=== PATIENT | male | born 1975 | race African-American/Black ===

== ENCOUNTER 2025-02-10 13:02 | Inpatient (IN) ==
[2025-02-10 14:04] LABS: Basophils # (auto) 0.02 K/uL (0.00-0.20); Basophils % (auto) 0.4 %; Eosinophils # (auto) 0.06 K/uL (0.00-0.50); Eosinophils % (auto) 1.2 %; Hematocrit (blood only) 37.8 % (42.0-52.0); Hemoglobin 12.7 g/dl (14.0-18.0); Immature Granulocytes # (auto) 0.01 K/uL (0.01-0.20); Immature Granulocytes % (auto) 0.2 %; Lymphocytes # (auto) 1.04 K/uL (1.20-3.40); Lymphocytes % (auto) 20.5 %; Mean Corpuscular Hemoglobin 31.9 pg (25.0-34.0); Mean Corpuscular Hgb Conc 33.6 g/dL (32.0-36.0); Mean Platelet Volume 9.3 fL (9.4-12.4); Monocytes % (auto) 9.8 %; Neutrophils # (auto) 3.45 K/uL (1.40-6.50); Neutrophils % (auto) 67.9 %; Platelet Count 252 K/uL (130-400); RDW Coefficient of Variation 13.6 % (11.5-14.5); RDW Standard Deviation 47.5 fL (36.4-46.3); Red Blood Count 3.98 M/uL (4.70-6.10); White Blood Count 5.08 K/ul (4.8-10.8)
[2025-02-10 14:12] LABS: Calcium 9.1 mg/dl (8.6-10.3); Potassium 3.6 mmol/L (3.5-5.1)
[2025-02-10 14:18] LABS: Creatinine Clr Calc Pharmacy 99.8 ml/min
[2025-02-10 14:27] LABS: BUN Creatinine Ratio 18.4 (10-20)
[2025-02-10 14:28] LABS: INR 0.9 (0.9-1.1); Partial Thromboplastin Ratio 0.9; Partial Thromboplastin Time 25 Seconds (21-31); Prothrombin Time 10.2 Seconds (9.0-12.0)
--- NOTE | 2025-02-10 15:04 | CT Scan Report ---
CT head without contrast History: Comparison: None Technique: Using multidetector thin collimation helical acquisition technique, axial, coronal and sagittal CT images from the skull base to the vertex were obtained without intravenous contrast. Dose reduction techniques were achieved by using automatic exposure control and/or adjustment of mA and/or kV according to patient size and/or use of iterative reconstruction technique. Findings: There is no acute territorial infarct, hemorrhage or abnormal mass effect. There is no intracranial mass identified. Mild atrophy and small vessel ischemic white matter disease. No shift of midline structures. No depressed skull fracture. No extra-axial fluid collection. Posterior fossa structures are grossly unremarkable Impression No acute intracranial process. Chronic changes of atrophy and small vessel disease. Electronically signed by Carlos Araujo 02-10-2025 3:04 PM
--- NOTE | 2025-02-10 15:06 | CT Scan Report ---
CT cervical spine without IV contrast History: Comparison: None Technique: Using multidetector thin collimation helical acquisition technique, axial, coronal and sagittal CT images through the cervical spine were obtained without intravenous contrast. Dose reduction techniques were achieved by using automatic exposure control and/or adjustment of mA and/or kV according to patient size and/or use of iterative reconstruction technique. Findings: Ybvgrhx-S0-D7 articulation appeared normal. Odontoid process is intact. No acute compression deformities. Posterior elements are intact. No acute process. Prevertebral soft tissues are normal. Airways are patent. Degenerative changes:Afkrepm-I1-X9 articulation appeared normal. Odontoid process is intact. No acute compression deformities. Posterior elements are intact. No acute process. Prevertebral soft tissues are normal. Airways are patent. Degenerative changes: Severe degenerative changes from C5-T1. Impression No acute process. Degenerative changes mid and lower cervical spine Electronically signed by Carlos Araujo 02-10-2025 3:06 PM
--- NOTE | 2025-02-10 15:31 | XRay Report ---
Chest radiograph, one view History: Syncope Comparison: 07/23/2022 Findings: Single AP view of the chest performed. No focal consolidation or pleural effusion. No pneumothorax. The cardiomediastinal silhouette is within normal limits. Normal pulmonary vascularity. No evidence for lymphadenopathy. No visualized bony or soft tissue abnormality. Impression: Normal chest radiograph Electronically signed by Carlos Araujo 02-10-2025 3:31 PM
[2025-02-10] MEDS: levETIRAcetam 500 MG/5 ML VIAL IV SCH (15:34)
[2025-02-10] MEDS ORDERED: ACETAMINOPHEN 325 MG TAB PO PRN (16:04)
[2025-02-10] MEDS ORDERED: MELATONIN 3 MG TAB PO PRN (16:04)
[2025-02-10] MEDS ORDERED: LORazepam 2 MG/1 ML VIAL IV PRN (16:06)
--- NOTE | 2025-02-10 16:06 | History & Physical Report ---
Date of Service February 10, 2025 Assessment & Plan (1) Seizure: (2) AMS (altered mental status): Plan #AMS likely 2/2 post-ictal in the setting of seizure d/o history #Bradypnea likely 2/2 above vs. drug abuse #History of AUD #Mild rhabdomyolysis #Normocytic anemia -ED talked to neuro who recommends keppra load -neuro consult -IV ativan for seizures -fall, aspiration precautions -NPO, bedside swallow, ST evaluation -hydration -PT/OT -UDS -B12, folate -MRI brain -UA, Bcx IVF, NPO for now SCDs History of Present Illness Primary Care Provider: TAYLER PCP 49M pmh seizure d/o, AUD who presents to the ED altered. Patient was reported to be somewhat confused on evaluation by the ED and also on my evaluation. States that he syncopized for unknown reasons. On my evaluation p atient admits that he has a history of seizure d/o, though he is unable to provide further details. Unclear precipitants or history of connection to neurology or medications for seizure modifications. No other complaints on my evaluation including focal weakness or numbness, and he was AAOx4 when awake, but quite lethargus. Allergies Allergy/AdvReac Type Severity Reaction Status Date / Time No Known Allergies Allergy Unverified 07/23/22 00:45 Home Medications Medication Instructions Recorded Confirmed Type No Known Home Medications 02/10/25 02/10/25 History Past Med/Surg History Problem List (Updated 02/10/25 @ 16:01 by Rick Fuentes MD) AMS (altered mental status) Seizure Encounter for removal of sutures (Acute) COVID-19 (Acute) Hypertension Alcohol use with intoxication HTN (hypertension) (Chronic) Syncope, vasovagal (Acute) Medical History Syncope Surgical History No pertinent past surgical history Family History Other Family history non-contributory Social History Smoking Status: Unknown if ever smoked Tobacco Type: E-cigarettes / Vaping Hx Alcohol Use: Yes Hx Substance Use: No Preferred Language: French Visual Impairment: No Limitations Hearing Ability: Normal marital status: Single current occupational status: employed Feels Safe at Home: Yes Review of Systems Constitutional: + daytime sleepiness; no fever and no ch ills Cardiovascular: no chest pain Neurologic: + syncope; no localized weakness, no los s of sensation and no numbness Physical Exam Constitutional: + diaphoretic and + lethargic Neurologic: patient does not fully cooperate with evaluation Results & Data Results & Data Vital Signs (Past 12 Hours) Vital Signs Temp Pulse Pulse Resp BP BP Pulse Ox 02/10/25 15:10 70 11 L 112/70 94 02/10/25 13:16 72 02/10/25 13:12 36.8 C 65 18 120/64 93 O2 Del Method 02/10/25 15:10 Room Air 02/10/25 13:16 02/10/25 13:12 Room Air Laboratory Results Abnormal lab results 02/10/25 Range/Units 13:20 RBC 3.98 L (4.70-6.10) M/uL Hgb 12.7 L (14.0-18.0) g/dl Hct 37.8 L (42.0-52.0) % RDW Std Deviation 47.5 H (36.4-46.3) fL MPV 9.3 L (9.4-12.4) fL Lymph # (Auto) 1.04 L (1.20-3.40) K/uL Glucose 156 H (70-99(Fasting)) mg/dl Total Creatine Kinase 273 H (30-223) U/L Diagnostic Findings Cervical Spine CT 02/10/25 13:47 CT cervical spine without IV contrast History: Comparison: None Technique: Using multidetector thin collimation helical acquisition technique, axial, coronal and sagittal CT images through the cervical spine were obtained without intravenous contrast. Dose reduction techniques were achieved by using automatic exposure control and/or adjustment of mA and/or kV according to patient size and/or use of iterative reconstruction technique. Findings: Ovphxdt-P7-A5 articulation appeared normal. Odontoid process is intact. No acute compression deformities. Posterior elements are intact. No acute process. Prevertebral soft tissues are normal. Airways are patent. Degenerative changes:Fwlvtqc-J2-C4 articulation appeared normal. Odontoid process is intact. No acute compression deformities. Posterior elements are intact. No acute process. Prevertebral soft tissues are normal. Airways are patent. Degenerative changes: Severe degenerative changes from C5-T1. Impression No acute process. Degenerative changes mid and lower cervical spine Electronically signed by Carlos Araujo 02-10-2025 3:06 PM Chest X-Ray 02/10/25 13:47 Chest radiograph, one view History: Syncope Comparison: 07/23/2022 Findings: Single AP view of the chest performed. No focal consolidation or pleural effusion. No pneumothorax. The cardiomediastinal silhouette is within normal limits. Normal pulmonary vascularity. No evidence for lymphadenopathy. No visualized bony or soft tissue abnormality. Impression: Normal chest radiograph Electronically signed by Carlos Araujo 02-10-2025 3:[address] 02/10/25 13:47 CT head without contrast History: Comparison: None Technique: Using multidetector thin collimation helical acquisition technique, axial, coronal and sagittal CT images from the skull base to the vertex were obtained without intravenous contrast. Dose reduction techniques were achieved by using automatic exposure control and/or adjustment of mA and/or kV according to patient size and/or use of iterative reconstruction technique. Findings: There is no acute territorial infarct, hemorrhage or abnormal mass effect. There is no intracranial mass identified. Mild atrophy and small vessel ischemic white matter disease. No shift of midline structures. No depressed skull fracture. No extra-axial fluid collection. Posterior fossa structures are grossly unremarkable Impression No acute intracranial process. Chronic changes of atrophy and small vessel disease. Electronically signed by Carlos Araujo 02-10-2025 3:04 PM
[2025-02-10] MEDS: SODIUM CHLORIDE 0.9% 1,000 ML IV SCH ×2 (16:21→17:35)
[2025-02-10] MEDS ORDERED: NALOXONE HCL 0.4 MG/1 ML VIAL/CARP IV PRN (16:44)
--- NOTE | 2025-02-10 16:47 | Emergency Department Note ---
History of Present Illness General Chief complaint: Seizure Stated complaint: POSSIBLE SEIZURE Time Seen by Provider: 02/10/25 13:36 Source: RN notes reviewed History of Present Illness Provider complaint: Seizure 49-year-old male presents emergency department for procedure. EMS reported the patient recently came here on the bus and was lying on the ground and had possible seizure-like activity. According to the nursing staff they reported to him that he had a seizure history. Patient is unable to give much of a history at this time. Home Medications Medication Instructions Recorded Confirmed Type No Known Home Medications 02/10/25 02/10/25 History Allergies Allergy/AdvReac Type Severity Reaction Status Date / Time No Known Allergies Allergy Unverified 07/23/22 00:45 Past Med/Surg History Problem List (Updated 02/10/25 @ 16:56 by Po Torre MD) Syncope (Acute) Seizure-like activity (Acute) AMS (altered mental status) Seizure Encounter for removal of sutures (Acute) COVID-19 (Acute) Hypertension Alcohol use with intoxication HTN (hypertension) (Chronic) Syncope, vasovagal (Acute) Medical History Syncope Surgical History No pertinent past surgical history Family History Other Family history non-contributory Social History Smoking Status: Unknown if ever smoked Tobacco Type: E-cigarettes / Vaping Hx Alcohol Use: Yes Hx Substance Use: No Preferred Language: Azeri Visual Impairment: No Limitations Hearing Ability: Normal marital status: Single current occupational status: employed Feels Safe at Home: Yes Physical Exam Vital Signs Vital Signs - 24 hr 02/10/25 13:12 02/10/25 13:16 02/10/25 15:10 Temperature 36.8 C Temperature Source Oral Pulse Rate 65 72 Pulse Rate [Apical] 70 Pulse Rhythm [Apical] Regular Pulse Strength [Apical] Normal Respiratory Rate 18 11 L Respiratory Effort / Characteristics Non-Labored Respiratory Depth Normal Respiratory Pattern Regular Blood Pressure 120/64 Blood Pressure [Right Arm] 112/70 Blood Pressure Mean 82 Blood Pressure Mean [Right Arm] 84 Blood Pressure Position [Right Arm] Lying Pulse Oximetry 93 94 Oxygen Delivery Method Room Air Room Air Sepsis Recent Fever Within 48 Hours No Sepsis New/Unexplained Change in Mental Status No Sepsis Action Taken by Nursing No Action Required Physical Exam GENERAL: Patient appears postictal. HENT: Exam performed. - Head: Normocephalic and atraumatic. EYES: Conjunctivae and EOM are normal. Pupils are equal, round, and reactive to light. Right eye exhibits no discharge. Left eye exhibits no discharge. No scleral icterus. NECK: Patient in C-collar. CV: Normal rate, regular rhythm, normal heart sounds and intact distal pulses. There is no peripheral edema. Palpable radial pulses bue. PULM/CHEST: Effort normal and breath sounds normal. No respiratory distress. No stridor. He has no wheezes. He has no rales. ABD: The abdomen is soft. There is no tenderness. There is no rebound, no guarding NEURO: Patient appears postictal. Sensation and motor grossly intact. Course Course 1336: The patient was evaluated in room . A complete history and physical exam was performed Cardiac monitoring: An order was placed for continuous cardiac monitoring. The monitor shows a rate of 70 with sinus rhythm interpreted by me External medical records reviewed. Patient has multiple visits to the emergency department for syncope as well as alcohol intoxication. 1522: Vital signs stable. Patient appears more awake and is able to answer more questions. Patient states he has no history of seizure disorder. Labs and imaging are unremarkable. Discussed case with on-call [facility] neurology Dr. Kelly, he recommends starting the patient on Keppra 500 mg twice daily. Patient will be admitted to the hospitalist team for syncope versus seizure. Patient is amenable to be admitted to the hospital. Administered Medications Sodium Chloride (Nss) 1,000 mls @ 999 mls/hr IV .Q1H1M [facility] Stop: 02/10/25 17:09 Last Admin: 02/10/25 16:21 Dose: 999 mls/hr Documented By: JONES Levetiracetam (Levetiracetam 500 Mg/5 Ml Vial) 500 mg IV Q12H [facility] Stop: 03/12/25 15:29 Last Admin: 02/10/25 15:34 Dose: 500 mg Documented By: JONES Medical Decision Making Laboratory Data Attestation: I reviewed the patient's lab results. 02/10/25 13:20 02/10/25 13:20 Lab Results 02/10/25 02/10/25 Range/Units 13:20 13:58 WBC 5.08 (4.8-10.8) K/ul RBC 3.98 L (4.70-6.10) M/uL Hgb 12.7 L (14.0-18.0) g/dl Hct 37.8 L (42.0-52.0) % MCV 95.0 (80.0-100.0) fL MCH 31.9 (25.0-34.0) pg MCHC 33.6 (32.0-36.0) g/dL RDW Std Deviation 47.5 H (36.4-46.3) fL RDW Coeff of Sharron 13.6 (11.5-14.5) % Plt Count 252 (130-400) K/uL MPV 9.3 L (9.4-12.4) fL Immature Gran % (Auto) 0.2 % Neut % (Auto) 67.9 % Lymph % (Auto) 20.5 % Lynn % (Auto) 9.8 % Eos % (Auto) 1.2 % Baso % (Auto) 0.4 % Neut # (Auto) 3.45 (1.40-6.50) K/uL Lymph # (Auto) 1.04 L (1.20-3.40) K/uL Lynn # (Auto) 0.50 (0.11-0.59) K/uL Eos # (Auto) 0.06 (0.00-0.50) K/uL Baso # (Auto) 0.02 (0.00-0.20) K/uL Immature Gran # (Auto) 0.01 (0.01-0.20) K/uL PT 10.2 (9.0-12.0) Seconds INR 0.9 (0.9-1.1) APTT 25 (21-31) Seconds PTT Ratio 0.9 Sodium 137 (136-145) mmol/L Potassium 3.6 (3.5-5.1) mmol/L Chloride 104 (98-107) mmol/L Carbon Dioxide 27 (21-32) mmol/L Anion Gap 6 (3-11) BUN 19 (6-23) mg/dl Creatinine 1.03 (0.6-1.4) mg/dl Est Cr Clr Drug Dosing 99.8 ml/min eGFR 89.05 BUN/Creatinine Ratio 18.4 (10-20) Glucose 156 H (70-99(Fasting)) mg/dl Calcium 9.1 (8.6-10.3) mg/dl Magnesium 2.0 (1.7-2.4) mg/dl Total Creatine Kinase 273 H (30-223) U/L Lipase 14 (11-82) U/L Prolactin 36.56 ng/ml Ethyl Alcohol mg/dL < 10.0 (<10.0) mg/dl Imaging Data Attestation: I personally reviewed and interpreted this imaging study as follows: My Impression: Chest x-ray negative. Airway clear. No pneumothorax. No consolidation. No cardiomegaly or cephalization.. No free air under the diaphragm. No fractures of the skeletal structures. Radiologist's Impression: Cervical Spine CT 02/10/25 13:47 CT cervical spine without IV contrast History: Comparison: None Technique: Using multidetector thin collimation helical acquisition technique, axial, coronal and sagittal CT images through the cervical spine were obtained without intravenous contrast. Dose reduction techniques were achieved by using automatic exposure control and/or adjustment of mA and/or kV according to patient size and/or use of iterative reconstruction technique. Findings: Favelni-H1-S1 articulation appeared normal. Odontoid process is intact. No acute compression deformities. Posterior elements are intact. No acute process. Prevertebral soft tissues are normal. Airways are patent. Degenerative changes:Apfqomu-A8-R4 articulation appeared normal. Odontoid process is intact. No acute compression deformities. Posterior elements are intact. No acute process. Prevertebral soft tissues are normal. Airways are patent. Degenerative changes: Severe degenerative changes from C5-T1. Impression No acute process. Degenerative changes mid and lower cervical spine Electronically signed by Carlos Araujo 02-10-2025 3:06 PM Chest X-Ray 02/10/25 13:47 Chest radiograph, one view History: Syncope Comparison: 07/23/2022 Findings: Single AP view of the chest performed. No focal consolidation or pleural effusion. No pneumothorax. The cardiomediastinal silhouette is within normal limits. Normal pulmonary vascularity. No evidence for lymphadenopathy. No visualized bony or soft tissue abnormality. Impression: Normal chest radiograph Electronically signed by Carlos Araujo 02-10-2025 3:[address] 02/10/25 13:47 CT head without contrast History: Comparison: None Technique: Using multidetector thin collimation helical acquisition technique, axial, coronal and sagittal CT images from the skull base to the vertex were obtained without intravenous contrast. Dose reduction techniques were achieved by using automatic exposure control and/or adjustment of mA and/or kV according to patient size and/or use of iterative reconstruction technique. Findings: There is no acute territorial infarct, hemorrhage or abnormal mass effect. There is no intracranial mass identified. Mild atrophy and small vessel ischemic white matter disease. No shift of midline structures. No depressed skull fracture. No extra-axial fluid collection. Posterior fossa structures are grossly unremarkable Impression No acute intracranial process. Chronic changes of atrophy and small vessel disease. Electronically signed by Carlos Araujo 02-10-2025 3:04 PM ECG Data Attestation: I personally reviewed and interpreted this ECG as follows: Rate (beats per minute): 66 ECG Intervals/blocks: + Normal QRS, + Normal MA and + Normal QT-c ECG ST segments: + Normal ST segments MDM Narrative 1336: The patient was evaluated in room . A complete history and physical exam was performed Cardiac monitoring: An order was placed for continuous cardiac monitoring. The monitor shows a rate of 70 with sinus rhythm interpreted by me External medical records reviewed. Patient has multiple visits to the emergency department for syncope as well as alcohol intoxication. 1522: Vital signs stable. Patient appears more awake and is able to answer more questions. Patient states he has no history of seizure disorder. Labs and imaging are unremarkable. Discussed case with on-call [facility] neurology Dr. Kelly, he recommends starting the patient on Keppra 500 mg twice daily. Patient will be admitted to the hospitalist team for syncope versus seizure. Patient is amenable to be admitted to the hospital. Impression & Plan Seizure-like activity, Syncope Discharge Plan Visit Data Chief Complaint: Seizure Stated Complaint: POSSIBLE SEIZURE ED Provider: Po Torre Discharge Problem: Seizure-like activity, Syncope Patient Disposition: Admitted As Inpatient Condition: Fair Forms Stand Alone Forms: [employer] Prescriptions Prescriptions: No Action No Known Home Medications Referrals Referrals: PCP,NO [Primary Care Provider] -
--- NOTE | 2025-02-10 18:01 | XRay Report ---
EXAM: Radiographs of the Orbits Foreign Body INDICATION: MRI clearance TECHNIQUE: Frontal view(s) of the orbits. COMPARISON: No relevant prior studies available. FINDINGS: Bones/joints: No fracture, erosion or dislocation. Sinuses: No abnormality noted. No air-fluid levels. Dental: Metallic dental appliances present. No other foreign body noted. IMPRESSION: Metallic dental appliances present. No other foreign body noted. ACT 112: N/A Electronically signed by Rosa Cho 02-10-2025 6:01 PM
[2025-02-10 23:17] LABS: Folate (Folic Acid),Ser orPlas 15.73 ng/ml (>5.38)
--- NOTE | 2025-02-11 00:23 | Magnetic Resonance Report ---
CLINICAL HISTORY: Episode of confusion, dizziness and altered mental status possible seizure. COMPARISON: CT dated February 10, 2025. TECHNIQUE: Using [facility] 3T scanner MR imaging of the brain was performed acquiring sagittal T1W, coronal T2W and axial T1W/T2W/ FLAIR/ T2* GRE/DWI/ADC without intravenous contrast administration and multiplanar reconstructed for interrogation on PACS. FINDINGS: Brain: Redemonstration of global involutional changes noted. Few discrete T2W and FLAIR hyperintensities are seen in bilateral centrum semiovale and periventricular and subcortical deep white matter. No abnormality seen on diffusion imaging. Findings represent microvascular ischemic changes. No signal voids on hemosensitive gradient echo sequences to prior intracranial hemorrhage or hemosiderin staining. No abnormal signal on diffusion-weighted imaging to suggest acute infarction. No evidence of midline shift or herniation. Ventricles: Well-defined rounded subependymal nodules seen along the roof of bilateral lateral ventricles, one on either side. These measure up to 4 mm. No diffusion restriction identified. 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 Posterior fossa: The posterior fossa appears unremarkable. Cerebellopontine angles, vestibulocochlear nerve complexes and internal auditory canals appear grossly unremarkable. No evidence of Chiari malformation. Vascular system: No gross vascular abnormalities. The major vessels at the skull base including the carotids and the vertebrobasilar systems demonstrate normal patent flow voids. The dural venous sinuses appear unremarkable without evidence of thrombosis. Sella: No evidence of pituitary mass or sellar expansion. Globes and orbits: Bilateral orbits and optic nerves appear unremarkable. Paranasal sinuses: Mild mucosal thickening seen in bilateral maxillary and ethmoid sinuses. Otherwise paranasal sinuses appear unremarkable. Temporal bones, skull base and mastoids: Normal skull base. Abnormal signals in mastoid air cells may be due to partial pneumatization or mastoiditis. Calvarium and scalp: Normal marrow signals. Scalp appear unremarkable. IMPRESSION: 1. Redemonstration of cerebral atrophic changes with white matter microvascular ischemic changes. 2. No intracerebral hemorrhage, acute infarction or mass effect. 3. 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 4. Follow-up with MRI with contrast advised if clinically deemed appropriate. Electronically signed by Omero Ordaz 02-11-2025 12:23 AM
[2025-02-11 04:37] LABS: Appearance Urine Clear (Clear); Bilirubin Urine Negative (Negative); Blood Urine Negative (Negative); Color Urine Yellow; Glucose Urine UA Negative (Negative); Ketones Urine Negative (Negative); Leukocyte Esterase Urine Negative (Negative); Nitrite Urine Negative (Negative); Protein Urine Negative (Negative); Specific Gravity Urine 1.018 (1.000-1.030); Urobilinogen Urine Negative (Negative); pH Urine 5.5 (4.5-7.5)
[2025-02-11 05:02] LABS: Amphetamines+Metham, Urine Neg (Neg); Barbiturates, Urine Neg (Neg); Benzodiazepine, Urine Neg (Neg); Cocaine, Urine Neg (Neg); Fentanyl, Urine Neg (Neg); MDMA (Ecstacy), Urine Neg (Neg); Marijuana, Urine Pos (Neg); Methadone, Urine Neg (Neg); Opiate, Urine Neg (Neg); Phencyclidine, Urine Neg (Neg)
--- NOTE | 2025-02-11 07:07 | Electrocardiogram Report ---
Test Reason : Blood Pressure : */* mmHG Vent. Rate : 66 BPM Atrial Rate : 66 BPM P-R Int : 178 ms QRS Dur : 82 ms QT Int : 456 ms P-R-T Axes : 46 1 27 degrees QTcB Int : 478 ms Normal sinus rhythm possible Inferior infarct (cited on or before 24-Jun-2021) Abnormal ECG When compared with ECG of 23-Jan-2025 21:22, Sinus rhythm has replaced Ectopic atrial rhythm Nonspecific T wave abnormality no longer evident in Lateral leads Confirmed by Cristian Juarez ([id number]) on 02/11/2025 7:06:54 AM Referred By: REFERRED SELF Confirmed By: Cristian Juarez
[2025-02-11 07:57] LABS: Hemoglobin 12.5 g/dl (14.0-18.0); Mean Corpuscular Hemoglobin 31.1 pg (25.0-34.0); Mean Corpuscular Hgb Conc 32.1 g/dL (32.0-36.0); Mean Platelet Volume 9.9 fL (9.4-12.4); Platelet Count 256 K/uL (130-400); RDW Standard Deviation 49.7 fL (36.4-46.3); Red Blood Count 4.02 M/uL (4.70-6.10); White Blood Count 4.09 K/ul (4.8-10.8)
[2025-02-11 08:14] LABS: Albumin Globulin Ratio 1.3 (0.9-2); Albumin Level 3.4 gm/dl (3.4-5.0); BUN Creatinine Ratio 12.6 (10-20); Bilirubin,Total 0.3 mg/dl (0.2-1.0); Calcium 8.4 mg/dl (8.6-10.3); Creatinine Clr Calc Pharmacy 112.4 ml/min; Globulin 2.7 gm/dl (2.5-4.0); Magnesium 2.1 mg/dl (1.7-2.4); Phosphorus 2.5 mg/dl (2.5-4.9); Potassium 3.9 mmol/L (3.5-5.1); Total Protein 6.1 gm/dl (6.0-8.3)
[2025-02-11 08:23] LABS: INR 0.9 (0.9-1.1); Prothrombin Time 10.3 Seconds (9.0-12.0)
--- NOTE | 2025-02-11 11:39 | Hospitalist Progress Note ---
Date of Service February 11, 2025 Assessment & Plan (1) Seizure: Plan: -patient has hx of seizures in past -however pattern feels different past, and becoming more frequent -differential includes: tuberous sclerosis, subepydymal nodular heterotia vs. idiopathic epilepsy vs. metabolic/other cause Plan: -continue keppra 500 bid, switch to PO -neurology consulted, appreciate recs -f/u EEG results (2) ALBINA (generalized anxiety disorder): Plan: -likely contributer to lowering seizure threshold -per patient wildly uncontrolled, likely contributed to drug use in past Plan: -start buspar since generally safe in epilepsy -f/u outpatient (3) Hypertension: Plan: -start losartan for BP, per patient very uncontrolled -may have benefit in epilepsy Plan I spent a total of 55 minutes in direct patient care, including [id number] time with the patient and/or family, reviewing medical records, ordering and reviewing diagnostic tests, and coordinating care with other healthcare providers. This time includes: history taking, physical examination, medical decision making, counseling, ECG interpretation, imaging interpretation, lab interpretation, orders, and education, excluding time spent in the performance of separately billed services. Admission and Anticipated Discharge Date Admission Date: February 10, 2025 Subjective Patient seen and examined at bedside. Patient states that he feels his uncontrolled anxiety and hypertension is making his seizures worse. He states that he has had a number of seizures since childhood but states these seizures are becoming more frequent and different. Feels back to his baseline. Review of Systems Review of Systems: CONSTITUTIONAL: Patient denies fevers, chills, sweats and weight changes. EYES: Patient denies any visual symptoms. EARS, NOSE, AND THROAT: No difficulties with hearing. No symptoms of rhinitis or sore throat. CARDIOVASCULAR: Patient denies chest pains, palpitations, orthopnea and paroxysmal nocturnal dyspnea. RESPIRATORY: No dyspnea on exertion, no wheezing or cough. GI: No nausea, vomiting, diarrhea, constipation, abdominal pain, hematochezia or melena. : No urinary hesitancy or dribbling. No nocturia or urinary frequency. No abnormal urethral discharge. MUSCULOSKELETAL: No myalgias or arthralgias. NEUROLOGIC: anxious PSYCHIATRIC: Patient denies problems with mood disturbance. No problems with anxiety. ENDOCRINE: No excessive urination or excessive thirst. DERMATOLOGIC: Patient denies any rashes or skin changes. Physical Exam Physical Exam: Gen: A&O 3 NAD HEENT: NCAT, EOMI, not icteric. External ears normal. No rhinorrhea. Moist mucous membranes. Neck: Supple, full range of motion, no observable masses, No meningeal sign. Lungs: No Respiratory distress. CV: RRR, no edema. Abdomen: Soft, nondistended, No rebound tenderness. MSK: No joint swelling, no redness. Skin: No rashes, petechiae, lesions. Normal color per patient. Neuro: Normal Gait, Grossly intact. Psych: Appropriate for situation. Results & Data Results & Data Vital Signs (Past 12 Hours) Vital Signs Temp Pulse Pulse Resp BP Pulse Ox O2 Del Method 02/11/25 11:00 36.7 C 59 L 18 147/108 H 100 Room Air 02/11/25 09:00 62 02/11/25 07:00 36.5 C 67 20 130/84 96 Room Air 02/11/25 03:19 36.8 C 60 18 124/86 96 Room Air Laboratory Results -personally reviewed, tox screen positive for marijuana, labs grossly unremarkable Diagnostic Findings Brain MRI 02/10/25 16:09 CLINICAL HISTORY: Episode of confusion, dizziness and altered mental status possible seizure. COMPARISON: CT dated February 10, 2025. TECHNIQUE: [facility] MR imaging of the brain was performed acquiring sagittal T1W, coronal T2W and axial T1W/T2W/ FLAIR/ T2* GRE/DWI/ADC without intravenous contrast administration and multiplanar reconstructed for interrogation on PACS. FINDINGS: Brain: Redemonstration of global involutional changes noted. Few discrete T2W and FLAIR hyperintensities are seen in bilateral centrum semiovale and periventricular and subcortical deep white matter. No abnormality seen on diffusion imaging. Findings represent microvascular ischemic changes. No signal voids on hemosensitive gradient echo sequences to prior intracranial hemorrhage or hemosiderin staining. No abnormal signal on diffusion-weighted imaging to suggest acute infarction. No evidence of midline shift or herniation. Ventricles: Well-defined rounded subependymal nodules seen along the roof of bilateral lateral ventricles, one on either side. These measure up to 4 mm. No diffusion restriction identified. 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 Posterior fossa: The posterior fossa appears unremarkable. Cerebellopontine angles, vestibulocochlear nerve complexes and internal auditory canals appear grossly unremarkable. No evidence of Chiari malformation. Vascular system: No gross vascular abnormalities. The major vessels at the skull base including the carotids and the vertebrobasilar systems demonstrate normal patent flow voids. The dural venous sinuses appear unremarkable without evidence of thrombosis. Sella: No evidence of pituitary mass or sellar expansion. Globes and orbits: Bilateral orbits and optic nerves appear unremarkable. Paranasal sinuses: Mild mucosal thickening seen in bilateral maxillary and ethmoid sinuses. Otherwise paranasal sinuses appear unremarkable. Temporal bones, skull base and mastoids: Normal skull base. Abnormal signals in mastoid air cells may be due to partial pneumatization or mastoiditis. Calvarium and scalp: Normal marrow signals. Scalp appear unremarkable. IMPRESSION: 1. Redemonstration of cerebral atrophic changes with white matter microvascular ischemic changes. 2. No intracerebral hemorrhage, acute infarction or mass effect. 3. 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 4. Follow-up with MRI with contrast advised if clinically deemed appropriate. Electronically signed by Omero Ordaz 02-11-2025 12:23 AM -personally reviewed, MRI revealing nodules in lateral ventricles Medications Administered Sodium Chloride (Nss) 1,000 mls @ 125 mls/hr IV .Q8H CLAUDIO Stop: 02/13/25 16:14 Last Admin: 02/11/25 04:42 Dose: 125 mls/hr Documented By: Infusion: 02/11/25 04:22 Dose: Infused Documented By: Infusion: 02/10/25 20:22 Dose: 125 mls/hr Documented By: Admin: 02/10/25 17:35 Dose: 125 mls/hr Documented By: FRACISCO Levetiracetam (Levetiracetam 500 Mg/5 Ml Vial) 500 mg IV Q12H CLAUDIO Stop: 03/12/25 15:29 Last Admin: 02/11/25 03:17 Dose: 500 mg Documented By: Admin: 02/10/25 15:34 Dose: 500 mg Documented By: JONES
[2025-02-11] MEDS: LOSARTAN POTASSIUM 50 MG TAB PO SCH (12:40)
[2025-02-11] MEDS: levETIRAcetam 500 MG TAB PO SCH (12:40)
[2025-02-11] MEDS: busPIRone 5 MG TAB PO SCH (14:02)
--- NOTE | 2025-02-11 15:03 | Neurology Consultation ---
Date of Consultation February 11, 2025 Assessment & Plan (1) Seizure: A 49 yo M w new onset seizure. MRI brain concerning for hetertopia Vs tuberous sclerosis. Patient back to baseline. - Start Keppra 500 mg BID - No driving for 6 months - Neuro follow up W MRI brain w/wo and routine EEG History of Present Illness Reason for Consultation: Seizure Requesting Physician: Dr. Cazares Attending Physician: Terry Cazares MD History of Present Illness A 49 yo M w Hx of HTN admitted after a seizure. Amnsetic to the event. He did not bite his tongue. Has happened to him before. No known Hx oc epilepsy. Allergies Allergy/AdvReac Type Severity Reaction Status Date / Time No Known Allergies Allergy Unverified 07/23/22 00:45 Home Medications Medication Instructions Recorded Confirmed Type No Known Home Medications 02/10/25 02/10/25 History Patient History Medical History Syncope Surgical History No pertinent past surgical history Family History Other Family history non-contributory Social History Smoking Status: Current every day smoker Tobacco Type: E-cigarettes / Vaping Hx Alcohol Use: No Hx Substance Use: No Preferred Language: Kazakh Communication Ability: Effective Visual Impairment: No Limitations Hearing Ability: Normal Family Nurse Practitioner Required: No Beliefs That Will Affect Care: None marital status: Single Current Living Situation Comment: roomate current occupational status: employed Feels Safe at Home: Yes Safety Concerns: Feels Safe At This Time Assistive Devices: Glasses Physical Exam Physical Exam: EXAM: Constitutional: appearance normally developed Face: normocephalic and atraumatic Eyes: normal lids, normal conjunctiva Neck: supple Respiratory: normal effort Abdomen: non distended Skin: no rashes, lesions, or ulcers noted Psychiatric: normal mood and normal affect NEUROLOGIC EXAMINATION: Appearance: no acute distress Orientation: awake, alert and oriented x 3 Mental Status: alert Attention: normal Knowledge: appropriate Language: no aphasia Speech: no dysarthria Cranial Nerves: CN 2 - no visual defect on confrontation and pupils round, equal CN 3, 4, 6 - extra-ocular movements intact CN 5 - facial sensation intact CN 7 - no facial asymmetry CN 8 - intact hearing CN 9, 10 - palate symmetric CN 11 - good shoulder shrug CN 12 - tongue midline Gait: deferred Coordination: no ataxia with finger to nose testing Sensory: intact and symmetric to light touch Results & Data Vital Signs (Past 12 Hours) Vital Signs Temp Pulse Pulse Resp BP Pulse Ox O2 Del Method 02/11/25 11:00 36.7 C 59 L 18 147/108 H 100 Room Air 02/11/25 09:00 62 02/11/25 07:00 36.5 C 67 20 130/84 96 Room Air 02/11/25 03:19 36.8 C 60 18 124/86 96 Room Air Diagnostic Findings MRI Brain reviewed. Possible cortical tubers Vs hetertopia
--- NOTE | 2025-02-11 15:12 | Discharge Summary ---
Discharge Summary Date of Service February 11, 2025 Principal Dx & Hospital Course #1 = Principal Diagnosis (1) Seizure: -patient has hx of seizures in past -however pattern feels different past, and becoming more frequent -differential includes: tuberous sclerosis, subepydymal nodular heterotia vs. idiopathic epilepsy vs. metabolic/other cause Plan: -continue keppra 500 bid, switch to PO -neurology consulted, appreciate recs -f/u EEG results (2) ALBINA (generalized anxiety disorder): -likely contributer to lowering seizure threshold -per patient wildly uncontrolled, likely contributed to drug use in past Plan: -start buspar since generally safe in epilepsy -f/u outpatient (3) Hypertension: -start losartan for BP, per patient very uncontrolled -may have benefit in epilepsy Plan I spent a total of 55 minutes in direct patient care, including [id number] time with the patient and/or family, reviewing medical records, ordering and reviewing diagnostic tests, and coordinating care with other healthcare providers. This time includes: history taking, physical examination, medical decision making, counseling, ECG interpretation, imaging interpretation, lab interpretation, orders, and education, excluding time spent in the performance of separately billed services. Notes For Next Care Provider 49M pmh seizure d/o, AUD who presents to the ED altered. Neurology consulted for concern for seizures, recommended starting keppra and no driving for 6 months, follow up outpatient. Started on buspar for anxiety and losartan for BP control. On 02/11/2025 patient medically stable for discharge home per medicine and neurology. Medication Changes From Visit -see below Admission HPI Per Admitting Provider 49M pmh seizure d/o, AUD who presents to the ED altered. Patient was reported to be somewhat confused on evaluation by the ED and also on my evaluation. States that he syncopized for unknown reasons. On my evaluation patient admits that he has a history of seizure d/o, though he is unable to provide further details. Unclear precipitants or history of connection to neurology or medications for seizure modifications. No other complaints on my evaluation including focal weakness or numbness, and he was AAOx4 when awake, but quite lethargus. Discharge Exam Gen: A&O 3 NAD HEENT: NCAT, EOMI, not icteric. External ears normal. No rhinorrhea. Moist mucous membranes. Neck: Supple, full range of motion, no observable masses, No meningeal sign. Lungs: No Respiratory distress. CV: RRR, no edema. Abdomen: Soft, nondistended, No rebound tenderness. MSK: No joint swelling, no redness. Skin: No rashes, petechiae, lesions. Normal color per patient. Neuro: Normal Gait, Grossly intact. Psych: Appropriate for situation. Updated Medication List Medication Instructions Recorded Confirmed Type buspirone 5 mg tablet 5 mg PO TID 30 days #90 tabs 02/11/25 Rx levetiracetam 500 mg tablet 500 mg PO Q12H 30 days #60 tabs 02/11/25 Rx (Keppra) losartan 50 mg tablet 50 mg PO QAM 30 days #30 tabs 02/11/25 Rx Hospital Stay Data Consultations 02/10/25 15:27 ED Decision to Admit Stat 02/10/25 16:06 Consult Neurology Routine Diagnostic Imagining Performed 02/10/25 13:47 CT cervical spine wo con Stat CT head/brain wo con Stat 02/10/25 16:09 MR brain wo con Routine Pending Results Patient Have Any Pending Studies at Discharge: No Discharge Instructions Given to Patient (Per Discharging Provider) 1. Please take all medications as prescribed. 2. Please corn picker your medications from the pharmacy. 3. Please follow up with PCP and neurology. 4. No driving for 6 months. Total Time Total Time Spent Total Time Spent (In Minutes): I spent a total of 35 minutes in direct patient care, including [id number] time with the patient and/or family, reviewing medical records, ordering and reviewing diagnostic tests, and coordinating care with other healthcare providers. This time includes: history taking, physical examination, medical decision making, counseling, ECG interpretation, imaging interpretation, lab interpretation, orders, and education, excluding time spent in the performance of separately billed services.
[2025-02-14 14:43] LABS: Marijuana Quant, GCMS Urine >5000 ng/mL (<5)
== END 2025-02-11 17:25 | disposition home or self-care (01) | DRG 101 ==
LOC: ED 13:02 → SUATTDRO 16:04 → 2E 16:04